=== PATIENT | male | born 1985 | race Caucasian/White ===

== ENCOUNTER 2022-10-05 06:55 | Emergency (ER) | payer MEDICAID ==
[~2022-10-05] VITALS: Ht 170.2 cm; Wt 81.6 kg
--- NOTE | 2022-10-05 06:55 | NUR ---
[facility]UD[facility] [employer], PREBOOK. TAKEN TO CHAIR
[2022-10-05 07:00] VITALS: BP 117/84
--- NOTE | 2022-10-05 07:06 | NUR ---
Dr. Low examining patient.
[2022-10-05] MEDS ORDERED: NACL 0.9% 1,000 ML IV ONE (07:25)
--- NOTE | 2022-10-05 07:51 | NUR ---
[employer] FOR PREBOOK, PER PT DENIES ANY PAIN, DENIES ANY TRAUMA/INJURY, NO JAUNDICE NOTED NKA PMH: HEP C (3 MONTHS AGO)
--- NOTE | 2022-10-05 07:53 | NUR ---
PATIENT AMBULATED TO BED 7.
--- NOTE | 2022-10-05 09:05 | NUR ---
IV removed, catheter intact and site benign. Applied folded 4x4 gauze and tape to stop bleeding.
[2022-10-05 09:07] VITALS: BP 128/83
--- NOTE | 2022-10-05 09:07 | NUR ---
PATIENT BIB [employer] DEPT. PATIENT EXAMINED BY DR. SPENCE. PATIENT MEDICALLY CLEARED AND RELEASED IN CUSTODY IN STABLE CONDITION. ORIGINAL PRE-BOOK FORM GIVEN TO OFFICER. chucho at this time
== END 2022-10-05 09:07 ==
LOC: MED 06:55
DX: Z02.89 Encounter for other administrative examinations (principal)
CPT/HCPCS: 96360; 99283; J7030